=== PATIENT | male | born 1970 | race Caucasian/White ===

== ENCOUNTER 2024-08-11 08:31 | Day surgery (SDC) | payer OTHER ==
[~2024-08-11] VITALS: Ht 182.9 cm; Wt 82.9 kg
[2024-08-11] VITALS (16 sets, daily range): BP systolic 110–158; BP diastolic 78–104
[~2024-08-11 08:31] MED LIST: ACETAMINOPHEN500 M2 PO; MULTI-VITAMIN1 EAC2 PO; NS 500 ML IV SCH
[2024-08-11] MEDS ORDERED: TURMERIC500 M2 PO (09:29)
[2024-08-11] MEDS ORDERED: propofoL 40 ML IV ONE (09:56)
[2024-08-11] MEDS ORDERED: Midazolam HCl 1MG / ML 2ML Vial ONE (10:02)
--- NOTE | 2024-08-11 10:09 | NUR ---
08/11/24 1009 Brad Alcazar CONFIRMED AND REVIEWED H&P, MEDCICATIONS, ALLERGIES, MEDICAL HISTORY, RESPIRATORY HISTORY, VITAL SIGNS, 3-LEAD EKG, CONSENTS, AND PHYSICIAN ORDERS. PATIENT CONFIRMS NPO STATUS AND AGREES WITH SCHEDULED PROCEDURE. MONITOR INTACT WITH CONTINUOUS PULSE OXIMETRY, CAPNOGRAPHY, 3-LEAD EKG, INTERMITTENT BP. SUPPLEMENTAL O2 TO BE TITRATED THROUGHOUT PROCEDURE TO MAINTAIN O2 SATURATION ABOVE 90%. PATIENT DETERMINED TO BE ASA APPROPRIATE FOR PROPOFOL SEDATION PRIOR TO START OF PROCEDURE BY DR. WICK.
--- NOTE | 2024-08-11 11:00 | NUR ---
Discharge instructions reviewed with patient. Patient verbalizes understanding. Copy given to patient to take home. Patient States Post-Procedure ride home has been arranged. Discharged via wheelchair to private car for ride home.
== END 2024-08-11 23:00 | disposition home or self-care (01) ==
LOC: ORSCMMR 08:31 → ORD 09:30 → ORSCMMR 09:30
PROVIDERS: Internal Medicine Gastroenterology
PROC: 0DBN8ZX Excision of Sigmoid Colon, Via Natural or Artificial Opening Endoscopic, Diagnostic (ICD-10-PCS; principal; 2024-08-11 09:30)
DX: K62.5 Hemorrhage of anus and rectum (principal); K63.5 Polyp of colon; K64.8 Other hemorrhoids; K57.30 Diverticulosis of large intestine without perforation or abscess without bleeding; K64.4 Residual hemorrhoidal skin tags; K21.9 Gastro-esophageal reflux disease without esophagitis
CPT/HCPCS: 88305; J2250; J2704; J7040

== ENCOUNTER → 2025-01-10 | Outpatient (CLI) | payer OTHER ==
[~2025-01-10] MED LIST changes: -NS 500 ML IV SCH; +TURMERIC500 M2 PO
[2025-01-14 06:19] LABS: PETH 16:0/18:1 (POPETH) 185 ng/mL; PETH 16:0/18:2 (PLPETH) 114 ng/mL
== END | disposition home or self-care (01) ==
LOC: LAB SHORT 16:51 → LAB 16:51
PROVIDERS: General Practice
DX: F10.90 Alcohol use, unspecified, uncomplicated (principal)
CPT/HCPCS: 80320; G0480

== ENCOUNTER 2025-08-01 07:48 | Day surgery (SDC) | payer OTHER ==
[2025-07-11 11:15] VITALS: BP 124/84
[~2025-08-01] VITALS: Ht 182.9 cm; Wt 64.3 kg
[2025-08-01] VITALS (13 sets, daily range): BP systolic 111–150; BP diastolic 69–99
[~2025-08-01 07:48] MED LIST changes: +CeFAZolin Sodium 2,000 MG in NS 100 ML IV SCH; +Chlorhexidine Mouth Care 15 ML UDC MT SCH; +FURO40 PO; +OXYC5 PO; +POTCHL20ER PO; +PREG100 PO; +Robaxin750 MG PO; +Ropivacaine 0.5% HCl/Pf 123.125 MG,EPINEPHrine HCL 0.25 MG,Ketorolac Tromethamine 15 MG... INFIL SCH; +Tranexamic Acid 100 ML IV SCH
[2025-08-01] MEDS ORDERED: FentaNYL Citrate 50 MCG/ML 2 ML Injection ONE (08:22)
[2025-08-01] MEDS ORDERED: Midazolam HCl 1MG / ML 2ML Vial ONE (08:23)
[2025-08-01] MEDS ORDERED: Dexamethasone Sod Phos 10 MG/ML 1ML VIAL ONE (09:28)
[2025-08-01] MEDS ORDERED: Rocuronium Bromide 10 MG/ML 5ML Injection IV ONE (09:28)
[2025-08-01] MEDS ORDERED: Ondansetron HCl 2 MG / ML 2ML Vial ONE (09:28)
[2025-08-01] MEDS ORDERED: HYDROmorphone HCl/Pf 1MG SYR IV PRN ×3 (09:35→11:30)
[2025-08-01] MEDS ORDERED: FLU VACC TS2025-26(6MOS UP)/PF 45 MCG/0.5 ML SYRINGE IM SCH (09:35)
[2025-08-01] MEDS ORDERED: Magnesium Hydroxide Conc 10 ML UDC PO PRN (10:00)
[2025-08-01] MEDS ORDERED: Metoclopramide HCl 5MG / ML 2ML Vial IV PRN (10:00)
[2025-08-01] MEDS ORDERED: Ondansetron HCl 2 MG / ML 2ML Vial IV PRN ×2 (10:00→11:25)
[2025-08-01] MEDS ORDERED: HYDROmorphone HCl/Pf 1MG SYR ONE ×2 (11:13→11:57)
[2025-08-01] MEDS ORDERED: Sugammadex Sodium 200 MG/2ML SDV (100 MG/ML) ONE (11:18)
[2025-08-01] MEDS ORDERED: FentaNYL Citrate 50 MCG/ML 2 ML Injection IV PRN ×2 (11:25→11:30)
[2025-08-01] MEDS ORDERED: Ketorolac Tromethamine 15mg Vial IV SCH (18:00)
[2025-08-01] MEDS ORDERED: CeFAZolin Sodium 2,000 MG in NS 100 ML IV SCH (18:00)
--- NOTE | 2025-08-01 18:31 | NUR ---
SUMMARY PT ARRIVED TO UNIT @1220. PT LETHARGIC POSTOPERATIVELY. SLEPT FOR 2 HOURS AFTER SURGERY. VSS. TELFA CDI TO L KNEE. FLUID BAG INFUSED. PT MEDICATED PER EMAR. SURGERY IS COMPLICATED BY RECENT BACK SURGERY AND CURRENT NUMBNESS TO EXTREMITIES FROM THAT. PHYSICAL THERAPY UNABLE TO SEE PT AFTER HE WAS AWAKE ENOUGH TO SAFELY TRANSFER. PT WANTING TO SEE PHYSICAL THERAPY BEFORE GOING HOME AND STATES UNEASINESS ABOUT GOING HOME UNTIL AM. STILL PRESENTS WITH SOME DROWSINESS. VSS. PT TO SEE PHYSICAL THERAPY TOMORROW AND THEN DC. HAS BEEN UP TO CHAIR AND VOIDED. IS CURRENTLY EATING DINNER. USING CALL LIGHT APPROPRIATELY.
[2025-08-02 00:16] VITALS: BP 119/75
[2025-08-02 03:40] LABS: BASOPHILS ABSOLUTE AUTO 0.01 K/mm3 (0.00-0.23); BASOPHILS PERCENT AUTO 0 % (0-2); EOSINOPHILS ABSOLUTE AUTO 0.01 K/mm3 (0.00-0.68); EOSINOPHILS PERCENT AUTO 0 % (0-6); Hematocrit 32.2 % (37.0-53.0); Hemoglobin 10.9 g/dL (13.5-17.5); IMMATURE GRAN ABSOLUTE AUTO 0.04 K/mm3 (0.00-0.10); IMMATURE GRAN PERCENT AUTO 0 % (0-1); LYMPHOCYTES ABSOLUTE AUTO 1.45 K/mm3 (0.84-5.20); LYMPHOCYTES PERCENT AUTO 11 % (21-46); MONOCYTES ABSOLUTE AUTO 0.96 K/mm3 (0.16-1.47); MONOCYTES PERCENT AUTO 8 % (4-13); Mean Corpuscular HGB Conc 33.9 g/dL (31.5-36.5); Mean Corpuscular Volume 87 fL (80-100); NEUTROPHILS ABSOLUTE AUTO 10.29 K/mm3 (1.96-9.15); NEUTROPHILS PERCENT AUTO 81 % (41-73); NRBC ABSOLUTE 0.00 K/mm3 (0.00-0.02); NRBC Auto 0.0 /100 WBC (0.0-0.2); Platelet Count 250 K/mm3 (150-400); RDW Coefficient Variation 13.1 % (11.7-14.2); RDW Standard Deviation 41.1 fL (35.1-46.3)
[2025-08-02 03:59] LABS: Anion Gap 10.0 mmol/L (3-11); Blood Urea Nitrogen 21.0 mg/dL (8-24); CO2, Blood 25.0 mmol/L (21-32); Calcium, Blood 8.5 mg/dL (8.5-10.1); Chloride, Blood 104.0 mmol/L (98-108); Creatinine, Blood 0.93 mg/dL (0.60-1.20); Glucose, Blood 158.0 mg/dL (70-99); Potassium, Blood 4.1 mmol/L (3.5-5.5); Sodium, Blood 135.0 mmol/L (136-145)
--- NOTE | 2025-08-02 04:37 | NUR ---
SHIFT SUMMARY EFRAIN WAS ALERT AND FULLY ORIENTED ON ASSESSMENT. PT PAIN WELL CONTROLLED. PT DENIES SOB, NAUSEA, CHEST PAIN. PT ABLE TO AMBULATE/ VOID. INSCISION DRESSING C/D/I. SENSATION/CIRCULATION TO BLE INTACT. NO ACUTE EVENTS TONIGHT.
[2025-08-02 05:30] VITALS: BP 117/73
[2025-08-02 08:16] VITALS: BP 134/79
--- NOTE | 2025-08-02 11:00 | NUR ---
SUMMARY ASSUMED CARE OF PT @0700. AXO4. VSS. DRESSING TO L KNEE DRY AND INTACT BUT REQUIRED BEING CHNGED OUT DUE TO BLOOD SOILING TO 4INCH AREA. PRINEO DRESSING CDI UNNDERNEATH TELFA- AQUACELL PLACED OVER TOP - EXTRA GIVEN TO PT FOR HOME CHANGEOUT. IV PULLED OUT. PT WIRKED WITH PJHYSICAL THERAPY - TOLERATEDWELL. VOIDING WELL. ATE BREAKFAST. PAIN TOLERABLE PER PT. DC INSTRUCTIONS PROVIDED TO PT AND SPOUSE IN ROOM. BELONGINGS PACKED UP, COLD PACK WITH PT. PT WHEELED OUT TO VEHICLE @8740.
== END 2025-08-02 10:47 | disposition home or self-care (01) ==
LOC: ORSCMMR 07:48 → ORD 09:15 → SURS 12:16 → ORSCMMR 08-02 10:47
PROVIDERS: Orthopaedic Surgery
PROC: 0SRD0JA Replacement of Left Knee Joint with Synthetic Substitute, Uncemented, Open Approach (ICD-10-PCS; principal; 2025-08-01 09:15)
DX: M17.12 Unilateral primary osteoarthritis, left knee (principal); I10 Essential (primary) hypertension; K21.9 Gastro-esophageal reflux disease without esophagitis; Z79.899 Other long term (current) drug therapy
CPT/HCPCS: 36415; 73560-LT; 80048; 85025; 97110; 97116; 97162; 97530; A9270; C1713; C1776; J0166; J0690; J0735; J1100; J1171; J1885; J2250; J2405; J2704; J2795; J3010; J7120